=== PATIENT | male | born 1995 ===

== ENCOUNTER 2017-10-25 20:58 | Emergency (ER) | payer OTHER ==
[~2017-10-25] VITALS: Ht 167.6 cm; Wt 88.5 kg
[~2017-10-25 20:58] MED LIST: CONCERTA18 MG/BOTT PO
[2017-10-26] MEDS ORDERED: KETO10TA2 PO (04:22)
== END 2017-10-26 04:18 | disposition home or self-care (01) ==
LOC: ER 20:58
DX: R10.814 Left lower quadrant abdominal tenderness (principal)